=== PATIENT | male | born 1985 | race African-American/Black ===

== ENCOUNTER 2017-08-18 17:34 | Emergency (ER) | payer SELFPAY ==
[~2017-08-18] VITALS: Ht 175.3 cm; Wt 83.0 kg
[2017-08-18 17:49] VITALS: BP 132/69
[2017-08-18] MEDS ORDERED: FLEXERIL10 MG PO (17:59)
[2017-08-18] MEDS ORDERED: NAPROXEN500 MG PO (17:59)
== END 2017-08-18 18:33 | disposition home or self-care (01) ==
LOC: EME 17:34
DX: S39.012A Strain of muscle, fascia and tendon of lower back, initial encounter (principal); X50.0XXA Overexertion from strenuous movement or load, initial encounter; Y93.89 Activity, other specified; Y99.0 Civilian activity done for income or pay; F17.200 Nicotine dependence, unspecified, uncomplicated
CPT/HCPCS: 99281; 99282